=== PATIENT | female | born 1955 | race Caucasian/White ===

== ENCOUNTER 2019-04-16 21:31 | Emergency (ER) | payer BC ==
[~2019-04-16] VITALS: Ht 162.6 cm; Wt 73.6 kg
[2019-04-16 22:33] LABS: BASOPHILS % (AUTO) 0.4 % (0-1); HEMATOCRIT 38.6 % (35.0-45.0); HEMOGLOBIN 13.4 g/dl (12.0-16.0); LYMPHOCYTES # (AUTO) 0.4 X10'3 (1.1-4.8); LYMPHOCYTES % (AUTO) 15.8 % (21-51); MEAN CORPUSCULAR HEMOGLOBIN 31.9 PG (27.0-31.0); MEAN CORPUSCULAR HGB CONC 34.9 g/dL (33.0-36.5); MEAN CORPUSCULAR VOLUME 91.5 FL (78-98); MONOCYTES # (AUTO) 0.5 X10'3 (0-0.9); MONOCYTES % (AUTO) 17.4 % (2-12); NEUTROPHILS # (AUTO) 1.8 X10'3 (1.8-7.7); NEUTROPHILS % (AUTO) 65.4 % (42-75); PLATELET COUNT 122 X10'3 (140-440); RED BLOOD COUNT 4.22 X10'6 (4.20-5.60); RED CELL DISTRIBUTION WIDTH 12.7 % (11.5-14.5); WHITE BLOOD COUNT 2.7 X10'3 (4.5-11.0)
[2019-04-16 22:35] LABS: CLARITY,URINE CLEAR (Clear); COLOR,URINE YELLOW (Yellow); GLUCOSE, URINE NEGATIVE (Neg); KETONES,URINE NEGATIVE (Neg); LEUKOCYTE ESTERASE ,URINE TRACE (Neg); NITRITES, URINE NEGATIVE (Neg); OCCULT BLOOD,URINE NEGATIVE (Neg); PH,URINE 6.5 (4.8-8.0); PROTEIN,URINE NEGATIVE (Neg); UROBILINOGEN,URINE 0.2 E.U/dL (0.2-1.0)
[2019-04-16 22:38] LABS: UA COLLECTION TYPE CLN CATCH MIDSTREAM
[2019-04-16 22:39] LABS: ALANINE AMINOTRANSFERASE 80 U/L (12-78); ALBUMIN 3.6 G/DL (3.4-5.0); ALBUMIN/GLOBULIN RATIO 0.9 (1.1-1.5); ANION GAP 9 (8-16); ASPARTATE AMINO TRANSFERASE 45 U/L (10-37); BILIRUBIN,TOTAL 0.3 MG/DL (0.1-1.0); BLOOD UREA NITROGEN 7 MG/DL (7-18); BUN/CREATININE RATIO 8.9 (6.6-38.0); CHLORIDE 101 MMOL/L (99-107); CREATININE 0.79 MG/DL (0.40-0.90); GLUCOSE 104 MG/DL (70-104); POTASSIUM 3.9 MMOL/L (3.5-5.1); SODIUM 135 MMOL/L (135-145); TOTAL CARBON DIOXIDE 25.4 MMOL/L (24-32); TOTAL PROTEIN 7.5 G/DL (6.4-8.2); eGFR 74 ML/MIN
[2019-04-16 22:40] LABS: ALKALINE PHOSPHATASE 119 IU/L (46-116); AMYLASE 65 U/L (25-115); LIPASE 173 U/L (73-393)
[2019-04-16 22:44] LABS: BACTERIA,URINE FEW /HPF (Neg); MUCUS STRANDS NONE SEEN /LPF (Neg); RBC,URINE NONE SEEN /HPF (0-2); SQUAMOUS EPITHELIAL CELL,UR FEW /LPF (FEW); WBC,URINE 0-4 /HPF (0-4)
[2019-04-16 22:57] LABS: TOTAL CELLS COUNTED 100
[2019-04-16 22:58] LABS: PLATELET ESTIMATE NORMAL
[2019-04-16] MEDS ORDERED: ONDA4TAB12 PO (22:58)
[2019-04-16] MEDS ORDERED: ondansetron 4mg rapidly disintigrating tab PO ONE (23:00)
[2019-04-16 23:08] VITALS: BP 122/65
== END 2019-04-16 23:12 | disposition home or self-care (01) ==
LOC: ER 21:32
DX: B34.9 Viral infection, unspecified (principal); R63.0 Anorexia; R53.1 Weakness; R11.0 Nausea; R74.8 Abnormal levels of other serum enzymes; R79.1 Abnormal coagulation profile; Z79.899 Other long term (current) drug therapy
CPT/HCPCS: 80053; 81001; 82150; 83690; 85025; 85610; 87088; 99283